=== PATIENT | female | born 1970 | race Two or more races ===

== ENCOUNTER 2016-11-26 22:41 | Emergency (ER) | payer OTHER ==
[~2016-11-26] VITALS: Ht 167.6 cm; Wt 93.0 kg
[2016-11-27] MEDS ORDERED: Bacitracin Oint UD TOPIC ONE (01:15)
[2016-11-27 01:20] VITALS: BP 120/88
--- NOTE | 2016-11-27 03:56 | Emergency Room Report ---
History of Present Illness General Chief Complaint: Laceration Source: Patient Present Illness HPI 46-year-old female presents to ED for evaluation. States that tonight she hit her head with a cabinet door. Notes laceration to the left eyebrow. Tetanus is up-to-date. Denies any pain. Denies LOC. Denies any other injuries. No other aggravating relieving factors. Denies any other associated symptoms Allergies: Coded Allergies: No Known Allergies (Unverified , 11/26/16) Patient History Past Medical History: none Past Surgical History: none Pertinent Family History: none Social History: Denies: alcohol use, drug use, smoking Last Menstrual Period: 2 weeks ago Now: No Immunizations: UTD Reviewed Nursing Documentation: PMH: Agreed, PSxH: Agreed Nursing Documentation-PMH Past Medical History: No Stated History Review of Systems All Other Systems: negative except mentioned in HPI Physical Exam Vital Signs Date Time Temp Pulse Resp B/P Pulse Ox O2 Delivery O2 Flow Rate FiO2 11/26/16 23:20 98.8 58 18 107/59 98 Sp02 EP Interpretation: reviewed, normal General Appearance: no apparent distress, alert, GCS 15, non-toxic Head: normocephalic Eyes: bilateral eye PERRL, bilateral eye normal inspection ENT: hearing grossly normal, normal pharynx, no angioedema, normal voice Neck: normal inspection Respiratory: normal inspection Cardiovascular #1: normal inspection Gastrointestinal: normal inspection Rectal: deferred Genitourinary: no CVA tenderness Musculoskeletal: normal inspection Neurologic: alert, oriented x3, responsive, motor strength/tone normal, sensory intact, speech normal Psychiatric: normal inspection Skin: laceration - 2cm laceration within L eyebrow Lymphatic: normal inspection Procedures Laceration/Wound Repair Laceration/Wound Repair : Consent: Verbal Wound Location: face - L eyebrow Wound's Depth, Shape: linear Wound Explored: clean Betadine Prep?: Yes Anesthesia: Lidocaine w/ Epi Wound Debrided: minimal Wound Repaired With: sutures Suture Size/Type: 6:0, proline Layer Closure?: No Sterile Dressing Applied?: Yes Splint Applied?: No Sling Applied?: No Patient Tolerated: Well Complications: None Medical Decision Making Diagnostic Impression: Primary Impression: Laceration ER Course Hospital Course 46-year-old F presents to ED s/p laceration L eyebrow Clinical course Patient placed on stretcher. After initial history and physical, wound is irrigated. Anesthesia provided with lidocaine. Laceration repaired w/o complication. Dressing applied. Diagnosis - laceration Stable and discharged to home. wound Care instructions given. Followup with PMD in 5-7 days for suture removal. Return to ED if any signs of infection develop Last Vital Signs Date Time Temp Pulse Resp B/P Pulse Ox O2 Delivery O2 Flow Rate FiO2 11/27/16 01:20 98.8 18 120/88 98 11/27/16 01:20 88 Status: improved Disposition: HOME, SELF-CARE Condition: Stable Referrals: [facility],REFERRING (PCP) Patient Instructions: Laceration Care, Adult Additional Instructions: return in 5-7 days for suture removal. return to ED if any signs of infection develop RUPALI HARDY M.D. Nov 27, 2016 03:56
== END 2016-11-27 01:20 | disposition home or self-care (01) ==
LOC: EMR 23:33
DX: S01.112A Laceration without foreign body of left eyelid and periocular area, initial encounter (principal); W22.03XA Walked into furniture, initial encounter; Y92.89 Other specified places as the place of occurrence of the external cause
CPT/HCPCS: 12011; 99284; Z7502

== ENCOUNTER 2016-12-03 11:13 | Emergency (ER) | payer OTHER ==
[~2016-12-03] VITALS: Ht 167.6 cm; Wt 93.0 kg
[2016-12-03 11:30] VITALS: BP 126/76
[2016-12-03] MEDS ORDERED: NAPROSYN500 M1 ORAL (12:30)
[2016-12-03 12:39] VITALS: BP 106/72
--- NOTE | 2016-12-03 12:40 | Emergency Room Report ---
History of Present Illness General Chief Complaint: Wound Recheck/Suture Removal Source: Patient Present Illness HPI The patient is a 46 yo F presenting for suture removal of the L face and L arm pain. The patient was seen in this ED for the suture placement. She denies any bleeding, pain, or discharge from the wound. She states that the pain of the L arm is felt is an 8/10 dull ache to the L shoulder and forearm which began 2 weeks prior after a child pulled on the arm. Worse with movement. She denies any other symptoms Allergies: Coded Allergies: No Known Allergies (Unverified , 11/26/16) Patient History Past Medical History: see triage record Pertinent Family History: none Last Menstrual Period: 11/12/16 Now: Yes : 7 Para: 4 Reviewed Nursing Documentation: PMH: Agreed, PSxH: Agreed Nursing Documentation-PMH Past Medical History: No History, Except For Hx Cardiac Problems: No - Rhinoplasty . Rfever. Shingles Review of Systems All Other Systems: negative except mentioned in HPI Physical Exam Vital Signs Date Time Temp Pulse Resp B/P Pulse Ox O2 Delivery O2 Flow Rate FiO2 12/03/16 11:21 98.1 55 22 126/76 100 Room Air Sp02 EP Interpretation: reviewed, normal General Appearance: no apparent distress, alert, GCS 15, non-toxic Head: normocephalic, atraumatic Eyes: bilateral eye PERRL, bilateral eye normal inspection ENT: hearing grossly normal, normal pharynx, no angioedema, normal voice Musculoskeletal: normal inspection, normal range of motion, tender - TTP over the L anterior shoulder and proximal forearm Neurologic: alert, oriented x3, responsive, motor strength/tone normal, sensory intact, speech normal Psychiatric: judgement/insight normal, memory normal, mood/affect normal, no suicidal/homicidal ideation Skin: normal color, no rash, warm/dry, well hydrated, wd healing/no infection noted, laceration - [address] of L lateral eyebrow Lymphatic: no adenopathy Medical Decision Making PA Attestation Dr. Rogers is my supervising physician. Patient management was discussed with my supervising physician Diagnostic Impression: Primary Impression: Muscle strain Additional Impressions: Encounter for wound re-check Encounter for removal of sutures ER Course The patient is a 46 yo F presenting for suture removal of the L face and L arm pain. Ddx considered include but not limited to sprain/strain, fracture, contusion, wound infection, non-healing wound, among others PE: NAD 3 sut[address] in-place of the L lateral eyebrow. Well approximated. No erythema. TTP over the L anterior deltoid and proximal forearm. No deformity. Full AROM. Suture removal: 3 simple interrupted sutures were removed without complication. No bleeding or discharge. Wound is well approximated. No surrounding erythema. She declined arm sling. She is given prescription for naproxen and will be DC'ed home. ER precautions given Last Vital Signs Date Time Temp Pulse Resp B/P Pulse Ox O2 Delivery O2 Flow Rate FiO2 12/03/16 11:30 98.1 55 22 126/76 100 Room Air Status: improved Disposition: HOME, SELF-CARE Condition: Improved Scripts Naproxen* (NAPROSYN*) 500 Mg Tablet 500 MG ORAL TWICE A DAY, #20 TAB Prov: ANNALEE ATKINS 12/03/16 Patient Instructions: Wound Check, Muscle Strain, Suture Removal, Care After Additional Instructions: I discussed my findings with the patient. All questions and concerns have been answered. Treatment and medication compliance have been addressed. I advised the patient that they need to follow up with PMD in 3-5 days. Return to ED if pain remains or worsens, numbness or tingling occurs, new rash is noticed, fever is noticed, or if needed for any reason. Patient verbalized understanding of discharge instructions. ANNALEE ATKINS Dec 03, 2016 12:40
== END 2016-12-03 12:49 | disposition home or self-care (01) ==
LOC: EMR 12:24
DX: R51 Headache (principal); M79.602 Pain in left arm; T14.8 Other injury of unspecified body region; X58.XXXA Exposure to other specified factors, initial encounter; Y93.9 Activity, unspecified; Y92.9 Unspecified place or not applicable; O26.90 Pregnancy related conditions, unspecified, unspecified trimester; Z3A.00 Weeks of gestation of pregnancy not specified
CPT/HCPCS: 99283